=== PATIENT | male | born 1995 | race Caucasian/White ===

== ENCOUNTER 2024-05-26 13:04 | Outpatient (CLI) | payer OTHER ==
[2024-05-26 15:02] LABS: Hematocrit 45.5 % (38.8-50.0); Hemoglobin 16.3 g/dL (13.5-17.5); Mean Corpuscular HGB CONC 35.8 g/dL (32.0-36.0); Mean Corpuscular Hemoglobin 31.2 pg (27.0-33.0); Mean Corpuscular Volume 87.2 fL (81.2-95.1); Mean Platelet Volume 9.4 fL (7.4-10.4); Platelet Count 263 10x3/uL (150-450); RBC Distribution Width 11.9 % (11.5-14.5); Red Blood Cell (RBC) Count 5.22 10x6/uL (4.32-5.72); White Blood Cell (WBC) Count 6.2 10x3/uL (3.5-10.5)
[2024-05-26 15:26] LABS: Anion Gap 15 mmol/L (10-20); BUN (Urea Nitrogen) 12 mg/dL (8.9-20.6); Calc. Creatinine Clearance 0 mL/min (70-130); Calcium 9.6 mg/dL (7.8-10.44); Carbon Dioxide 23 mmol/L (22-29); Chloride 106 mmol/L (98-107); Estimated GFR 92; Glucose 86 mg/dL (70-105); Sodium 140 mmol/L (136-145)
== END 2024-05-26 13:05 | disposition home or self-care (01) ==
LOC: CSHLAB 13:04
PROVIDERS: ATTEND Specialist
DX: Z01.812 Encounter for preprocedural laboratory examination (principal); L05.91 Pilonidal cyst without abscess
CPT/HCPCS: 80048; 85027

== ENCOUNTER 2024-06-20 06:05 | Day surgery (SDC) | payer OTHER ==
[2024-05-26 13:44] VITALS: BMI 26.1
[2024-06-20] MEDS ORDERED: Acetaminophen 500 MG TAB ONE (06:57)
[2024-06-20] MEDS ORDERED: Ketorolac Tromethamine 30 MG (1 mL) VIAL ONE (06:57)
[2024-06-20] MEDS ORDERED: Bupivacaine 0.25% HCL 30 ML VIAL ONE (07:51)
[2024-06-20] MEDS ORDERED: EPINEPHrine 1 MG/ML VIAL ONE (07:51)
[2024-06-20] MEDS ORDERED: Mupirocin 2% Ointment 22 GM Tube ONE (07:52)
[2024-06-20] MEDS ORDERED: PROPOFOL 20 ML ONE (08:25)
[2024-06-20] MEDS ORDERED: Lidocaine 2% PF 5 ML VIAL ONE (08:25)
[2024-06-20] MEDS ORDERED: Rocuronium Bromide 10 MG/ML (10ML VIAL) ONE (08:26)
[2024-06-20] MEDS ORDERED: Lidocaine 4% PF 5 ML AMP ONE (08:26)
[2024-06-20] MEDS ORDERED: CEFAZOLIN 2 GM VIAL ONE (09:32)
[2024-06-20] MEDS ORDERED: fentaNYL 50 mcg/mL 1 mL Vial ONE ×2 (09:32→10:19)
[2024-06-20] MEDS ORDERED: Midazolam HCl 2 mg/2 ml Vial ONE (09:34)
[2024-06-20] MEDS ORDERED: LevoFLOXacin D5W 500 mg (100 mL) BAG ONE (09:59)
[2024-06-20] MEDS ORDERED: Ondansetron PF 4 MG/2 ML Vial ONE (10:08)
[2024-06-20] MEDS ORDERED: Dexamethasone 4 mg/ml Vial ONE (10:08)
[2024-06-20] MEDS ORDERED: SUGAMMADEX SODIUM 200 MG/2 ML VIAL ONE (10:27)
== END 2024-06-20 12:40 | disposition home or self-care (01) ==
LOC: CSHSDC 06:05
PROVIDERS: ATTEND Specialist
PROC: 0JB90ZZ Excision of Buttock Subcutaneous Tissue and Fascia, Open Approach (ICD-10-PCS; principal; 2024-06-20)
PROC: 0HX8XZZ Transfer Buttock Skin, External Approach (ICD-10-PCS; principal; 2024-06-20)
DX: L05.91 Pilonidal cyst without abscess (principal); L05.92 Pilonidal sinus without abscess; Z88.1 Allergy status to other antibiotic agents; Z79.899 Other long term (current) drug therapy; F84.0 Autistic disorder; F31.9 Bipolar disorder, unspecified
CPT/HCPCS: 88304; J0171; J0665; J1100; J1885; J1956; J2001; J2250; J2405; J2704; J3010; Q9968